=== PATIENT | male | born 1995 | race Caucasian/White ===

== ENCOUNTER 2016-05-11 00:50 | Emergency (ER) | payer BC ==
[2016-05-11] MEDS ORDERED: LORazepam 1 MG TAB PO STA (01:14)
--- NOTE | 2016-05-11 01:17 | ED ---
General Adult HPI - General Chief complaint: Shortness of Breath Stated complaint: anxiety/high BP Time Seen by Provider: 05/11/16 01:10 Source: patient, family, RN notes reviewed Mode of arrival: ambulatory Limitations: no limitations - History of Present Illness Initial comments: 20-year-old male presents emergency Department chief complaint of chest discomfort, shakiness shortness of breath. Patient states she's been having on and off symptoms over the last month. He states there is no exact reason why it comes on he states this at periods of time he has the symptoms. He states it started while playing cards tonight. Father states that he became very anxious or shaking complaining of chest discomfort. Patient states that he cannot sit still has is very anxious. Patient does have a history of depression. Denies any illicit drug use. Patient states he is a daily smoker and also vaps. Patient denies any pleuritic chest pain. Patient denies any headache, dizziness, fever, chills. Patient has nausea vomiting. He has no known heart disease. Denies any family history of early heart disease. Patient also states that he has not been sleeping well. Patient states all started since this change in environment home. He states he is very anxious and jittery. - Related Data Previous Rx's Medication Instructions Recorded ALPRAZolam [Xanax] 0.5 mg PO BID PRN #10 tablet 05/11/16 Allergies Allergy/AdvReac Type Severity Reaction Status Date / Time No Known Allergies Allergy Verified 05/11/16 00:59 Review of Systems ROS Statement: Those systems with pertinent positive or pertinent negative responses have been documented in the HPI. ROS Other: All systems not noted in ROS Statement are negative. Past Medical History Past Medical History: No Reported History History of Any Multi-Drug Resistant Organisms: None Reported Past Surgical History: No Surgical Hx Reported Past Psychological History: Depression Smoking Status: Current every day smoker Past Alcohol Use History: Rare Past Drug Use History: None Reported General Exam Limitations: no limitations General appearance: alert, in no apparent distress, anxious Head exam: Present: atraumatic, normocephalic, normal inspection Eye exam: Present: normal appearance, PERRL, EOMI. Absent: scleral icterus, conjunctival injection, periorbital swelling ENT exam: Present: normal exam, normal oropharynx, mucous membranes moist Neck exam: Present: normal inspection. Absent: tenderness, meningismus, lymphadenopathy Respiratory exam: Present: normal lung sounds bilaterally. Absent: respiratory distress, wheezes, rales, rhonchi, stridor Cardiovascular Exam: Present: regular rate, normal rhythm, normal heart sounds. Absent: systolic murmur, diastolic murmur, rubs, gallop, clicks GI/Abdominal exam: Present: soft, normal bowel sounds. Absent: distended, tenderness, guarding, rebound, rigid Neurological exam: Present: alert, oriented X3, CN II-XII intact Skin exam: Present: warm, dry, intact, normal color. Absent: rash Course Vital Signs 05/11/16 05/11/16 00:54 01:34 Temperature 98.4 F 97.2 F L Pulse Rate 87 83 Respiratory 20 18 Rate Blood Pressure 127/89 106/52 O2 Sat by Pulse 100 99 Oximetry EKG Findings - EKG Comments: EKG Findings:: EKG performed at 1:06 normal sinus rhythm with a rate of 84 CO interval 144, QRS duration 82, QT/QTC 348/411 Medical Decision Making - Medical Decision Making 20-year-old male presented for chest discomfort anxious and shortness breath. Patient is feeling better After Ativan. Lab Work within Normal Limits. Patient Will Be Discharged with Xanax Return Parameters Discussed. Patient Will Follow-Up with Primary Care Physician Dr. Ballard on Friday. - Lab Data Result diagrams: 05/11/16 02:00 05/11/16 02:00 Lab Results 05/11/16 05/11/16 Range/Units 02:00 02:00 WBC 9.0 (3.8-10.6) k/uL RBC 5.10 (4.30-5.90) m/uL Hgb 15.7 (13.0-17.5) gm/dL Hct 46.8 (39.0-53.0) % MCV 91.7 (80.0-100.0) fL MCH 30.7 (25.0-35.0) pg MCHC 33.5 (31.0-37.0) g/dL RDW 12.2 (11.5-15.5) % Plt Count 189 (150-450) k/uL Neutrophils % 50 % Lymphocytes % 37 % Monocytes % 8 % Eosinophils % 2 % Basophils % 1 % Neutrophils # 4.5 (1.3-7.7) k/uL Lymphocytes # 3.3 (1.0-4.8) k/uL Monocytes # 0.7 (0-1.0) k/uL Eosinophils # 0.2 (0-0.7) k/uL Basophils # 0.1 (0-0.2) k/uL Sodium 142 (137-145) mmol/L Potassium 4.2 (3.5-5.1) mmol/L Chloride 104 (98-107) mmol/L Carbon Dioxide 27 (22-30) mmol/L Anion Gap 11 mmol/L BUN 16 (9-20) mg/dL Creatinine 0.90 (0.66-1.25) mg/dL Est GFR (MDRD) Af Amer >60 (>60 ml/min/1.73 sqM) Est GFR (MDRD) Non-Af >60 (>60 ml/min/1.73 sqM) Glucose 97 (74-99) mg/dL Calcium 9.9 (8.4-10.2) mg/dL Total Bilirubin 0.3 (0.2-1.3) mg/dL AST 21 (17-59) U/L ALT 44 (21-72) U/L Alkaline Phosphatase 68 (38-126) U/L Total Protein 6.8 (6.3-8.2) g/dL Albumin 4.4 (3.5-5.0) g/dL TSH 2.110 (0.465-4.680) mIU/L Disposition Clinical Impression: Palpitations, Anxiety Disposition: HOME SELF-CARE Condition: Stable Instructions: Anxiety (ED) Additional Instructions: Please return to the Emergency Department if symptoms worsen or any other concerns. Prescriptions: ALPRAZolam [Xanax] 0.5 mg PO BID PRN #10 tablet PRN Reason: Anxiety Referrals: Julius Ballard MD [STAFF PHYSICIAN] - 1-2 days Time of Disposition: 03:03
[2016-05-11 01:35] VITALS: TEMP 97.2
--- NOTE | 2016-05-11 01:42 | XR ---
EXAMINATION TYPE: XR chest 2V DATE OF EXAM: 05/11/2016 1:37 AM COMPARISON: 07/02/2004 HISTORY: Short of breath and chest pain TECHNIQUE: Frontal and lateral views of the chest are obtained. FINDINGS: Heart and mediastinum are normal. Lungs are clear. Diaphragm is normal. Bony thorax and so ft tissues appear normal. IMPRESSION: Normal chest. No change.
[2016-05-11 02:09] LABS: Basophils # (A) 0.1 k/uL (0-0.2); Basophils % (A) 1 %; Eosinophils # (A) 0.2 k/uL (0-0.7); Eosinophils % (A) 2 %; HCT 46.8 % (39.0-53.0); HDW 2.33; HGB 15.7 gm/dL (13.0-17.5); Luc # (Auto) 0.23; Luc % (Auto) 3; Lymphocytes # (A) 3.3 k/uL (1.0-4.8); Lymphocytes % (A) 37 %; MCH 30.7 pg (25.0-35.0); MCHC 33.5 g/dL (31.0-37.0); MCV 91.7 fL (80.0-100.0); Mean Platelet Volume 8.6; Monocytes # (A) 0.7 k/uL (0-1.0); Monocytes % (A) 8 %; Neutrophils # (A) 4.5 k/uL (1.3-7.7); Neutrophils % (A) 50 %; RDW 12.2 % (11.5-15.5); WBC (Perox) 8.83
[2016-05-11 02:19] LABS: ALT 44 U/L (21-72); AST 21 U/L (17-59); Alkaline Phosphatase 68 U/L (38-126); Anion Gap 11 mmol/L; Blood Urea Nitrogen 16 mg/dL (9-20); Calcium 9.9 mg/dL (8.4-10.2); Carbon Dioxide 27 mmol/L (22-30); Chloride 104 mmol/L (98-107); Glucose 97 mg/dL (74-99); Non-African American GFR(MDRD) >60 (>60 ml/min/1.73 sqM); Potassium 4.2 mmol/L (3.5-5.1); Sodium 142 mmol/L (137-145); Total Bilirubin 0.3 mg/dL (0.2-1.3); Total Protein 6.8 g/dL (6.3-8.2)
[2016-05-11 03:06] VITALS: BP 134/78; PULSE 78; RESP 20
== END 2016-05-11 03:15 | disposition home or self-care (01) ==
LOC: EC 00:50
DX: R00.2 Palpitations (principal); F41.9 Anxiety disorder, unspecified; R07.89 Other chest pain; F32.9 Major depressive disorder, single episode, unspecified; F17.200 Nicotine dependence, unspecified, uncomplicated
CPT/HCPCS: 36415; 71020; 80053; 84443; 85025; 93005; 99285